=== PATIENT | male | born 1975 | race Caucasian/White ===

== ENCOUNTER → 2018-07-10 16:10 | Outpatient (CLI) | payer OTHER, SELFPAY ==
--- NOTE | 2018-07-10 16:13 | US_ITS ---
STUDY: SCROTUM ULTRASOUND REASON FOR EXAM: Male, 42 years old. Right testicular pain for 2 weeks TECHNIQUE: Ultrasound evaluation of the scrotum was performed with color Doppler and static marie-scale imaging. COMPARISON: None. FINDINGS: RIGHT TESTICLE INTRATESTICULAR: There is a normal size of the right testicle. The right testicle measures 4.3 x 2.6 x 1.9 cm. There is a homogenous echotexture. There is normal arterial and normal venous vascularity. There is no demonstrated right testicular mass or cyst. EXTRATESTICULAR: The epididymis is enlarged. The epididymis head measures 1.2 cm and is mildly heterogeneous. There is normal vascularity of the epididymis. There is no demonstrated epididymal cystic structure. There is a small hydrocele. There is no demonstrated varicocele. There is no demonstrated extratesticular mass or cyst. LEFT TESTICLE INTRATESTICULAR: There is a normal size of the left testicle. The left testicle measures 4.4 x 2.8 x 2.0 cm. There is a homogenous echotexture. There is normal arterial and normal venous vascularity. There is no demonstrated left testicular mass or cyst. EXTRATESTICULAR: The epididymis is normal in size. The epididymis head measures 1.2 cm. There is normal vascularity of the epididymis. There is no demonstrated epididymal cystic structure. There is a small hydrocele. There is no demonstrated varicocele. There is no demonstrated extratesticular mass or cyst. US/Testicular with Arterial Flow IMPRESSION: 1. Normal bilateral testicles. 2. Mild heterogeneity of the right epididymis could represent epididymitis. Electronically Signed: Guillaume Leong MD at 22:58 EST , Service support ,
== END ==
PROVIDERS: Family Provider Family Medicine; PCP Family Medicine; Referring Provider Family Medicine; Visit Provider Family Medicine
DX: N50.811 Right testicular pain (principal)
CPT/HCPCS: 76870; 93976

== ENCOUNTER → 2018-07-14 17:37 | Outpatient (CLI) | payer OTHER, SELFPAY ==
--- NOTE | 2018-07-14 18:25 | RAD_ITS ---
STUDY: X-RAY - LEFT KNEE REASON FOR EXAM: Male, 42 years old. Injury TECHNIQUE: 4 view(s) of the knee. COMPARISON: None. FINDINGS: Normal visualized distal femur. Normal visualized proximal tibia and fibula. Normal proximal tibiofibular articulation. Normal medial femorotibial compartment. Normal lateral femorotibial compartment. Normal patellofemoral articulation. Patella spurring. The soft tissue structures are unremarkable. RAD/Knee 4 or More Views IMPRESSION: No acute bony injury of the knee. Electronically Signed: Thom Borja DO at 23:59 EST Tel [phone], Service support ,
[2018-07-14 18:45] LABS: AST(SGOT) 21 U/L (15-37); Alanine Aminotransfer ALT/SGPT 44 U/L (16-61); Alkaline Phosphatase 84 U/L (45-117); Bilirubin, Direct 0.16 mg/dL (0.00-0.30); Globulin 3.4 g/dL (2.2-4.2); Protein, Total 7.4 g/dL (6.4-8.2)
== END ==
PROVIDERS: Family Provider Family Medicine; PCP Family Medicine; Referring Provider Family Medicine; Visit Provider Family Medicine
DX: R94.5 Abnormal results of liver function studies (principal); S89.92XA Unspecified injury of left lower leg, initial encounter
CPT/HCPCS: 36415; 73564; 80076

== ENCOUNTER → 2018-07-28 16:33 | Outpatient (CLI) | payer OTHER, SELFPAY ==
--- NOTE | 2018-07-28 16:35 | MRI_ITS ---
STUDY: MRI LEFT KNEE REASON FOR EXAM: Male, 42 years old. Pain after injury TECHNIQUE: Standardized fat and water weighted pulse sequences were obtained in all 3 orthogonal planes. COMPARISON: X-ray July 14, 2018 FINDINGS: Normal medial meniscus. Normal hyaline cartilage of the medial femorotibial compartment. Normal medial femoral condyle and tibial plateau. There is a partial sprain of the MCL with interstitial and periligamentous edema series 9 image 15/30. Normal distal semimembranosus, gracilis and semitendinosus tendons. Normal lateral meniscus. There is focal, greater than 50% thickness articular cartilage loss of the lateral tibial plateau, series 9 image 13/30. Normal lateral femoral condyle and tibial plateau. Normal proximal tibiofibular articulation. Normal lateral collateral (fibular) ligament. Normal popliteus tendon. Normal biceps femoris tendon. Normal anterior cruciate ligament (ACL). Normal posterior cruciate ligament (PCL). Normal congruent patellofemoral articulation. Normal hyaline cartilage of the patellofemoral compartment. Normal medial and lateral patellar retinaculum. Normal quadriceps tendon. Normal patellar tendon. Normal Hoffa's fat pad. There is a small volume joint effusion. There is a 5.1 cm Boone's cyst. The soft tissues are unremarkable. The otherwise visualized osseous structures are unremarkable. MRI/Lower Ext Joint Only (Routine) IMPRESSION: No meniscal tear. Focal cartilaginous irregularity of the lateral tibial plateau. Medial collateral ligament sprain. Joint effusion with popliteal cyst Electronically Signed: Narciso Wong MD at 21:56 EST , Service support ,
== END ==
PROVIDERS: Family Provider Family Medicine; PCP Family Medicine; Referring Provider Family Medicine; Visit Provider Family Medicine
DX: S89.92XA Unspecified injury of left lower leg, initial encounter (principal)
CPT/HCPCS: 73721

== ENCOUNTER → 2020-10-17 15:10 | Outpatient (CLI) | payer OTHER, SELFPAY | PROVIDERS: PCP Family Medicine; Referring Provider Family Medicine; Visit Provider Family Medicine | DX: Z20.828 Contact with and (suspected) exposure to other viral communicable diseases (principal) | CPT/HCPCS: 87635; U0002 ==

== ENCOUNTER → 2020-11-03 10:48 | Outpatient (CLI) | payer OTHER, SELFPAY ==
[2020-11-03 10:07] VITALS: BMI 29.9
--- NOTE | 2020-11-03 10:50 | STE_ITS ---
Reason For Study: CHEST PAIN Stress Results Protocol: Kailash Protocol Maximum Predicted HR: 176 bpm Target HR: 150 bpm % Maximum Predicted HR: 97 % DurationHeart Rate Stage (mm:ss) (bpm) BP Comment BASELINE 64 132/76 STAGE 1 3:00 105 130/82 STAGE 2 3:00 125 140/70NO CHEST PAIN STAGE 3 3:00 150 152/62 STAGE 4 3:00 171 156/80SOB NOTED, NO CHEST PAIN RECOVERY 107 122/82 Stress Duration: 12:00 mm:ss Maximum Stress HR: 171 bpm Baseline Echocardiogram Findings Stress Echo Wall motion Data Resting WM Intermediate WM Stress WM ECHO/Stress Test Echo w/o Contrast Interpretation Summary Exercise stress echo. 45-year-old man with a history of chest pain. Stress protocol: Resting EKG demonstrates normal sinus rhythm with a rate of 66 bpm normal inter vals are noted resting blood pressure is 132/76 mmHg. The patient exercised according to the r egular Kailash protocol for total duration of 12 minutes. Patient completed stage IV of the Kailash vesta col. The maximum heart rate attained was 171 bpm which was 97% of maximum predicted heart rate t he maximum workload was 13.7 metabolic equivalents. At rest there were no ST or T wave changes note d to suggest ischemia and at peak exercise upsloping ST changes were noted with did not meet the crit eria for ischemia. The peak blood pressure was 156/80 mmHg which was a good blood pressure respons e to exercise. Stress echocardiogram. Resting and stress echocardiographic images were obtained with the resting nathen mated ejection fraction at 55% and the peak ejection fraction is 65% with thickening of all wa lls and reduction of low ventricular cavity size. No wall motion abnormalities were noted to suggest ischemia. No clinical angina was noted. Conclusion: Normal exercise stress test with no EKG criteria for ischemia at a high workloa d. Excellent functional capacity. Preserved ejection fraction at rest and with exercise. Ordering Physician: Blaze^Blade^^^ Referring Physician: Blade Thakur Performed By: Shannon Langley, [facility], [place]
== END ==
PROVIDERS: PCP Family Medicine; Referring Provider Internal Medicine Cardiovascular Disease; Visit Provider Internal Medicine Cardiovascular Disease
DX: R07.9 Chest pain, unspecified (principal)
CPT/HCPCS: 93017; 93350

== ENCOUNTER 2021-08-23 16:51 | Outpatient (CLI) | payer OTHER, SELFPAY ==
[2021-08-23 17:59] LABS: Absolute Lymphocyte Count 2.98 X10^3/uL (0.83-4.51); Basophil# 0.06 X10^3/uL; Basophil% 0.7 % (0-1); Eosinophil# 0.19 X10^3/uL; Eosinophils% 2.3 % (0-5); Hematocrit 45.2 % (40-54); Hemoglobin 15.1 g/dL (13.0-16.5); Lymphocyte # 2.98 X10^3/ul (0.83-4.51); Lymphocyte % 36.4 % (19-41); Mean Corp Hgb Conc 33.4 g/dL (32-36); Mean Corpuscular Hgb 31.7 pg (27.0-32.0); Mean Corpuscular Volume 94.8 fL (80-94); Mean Platelet Vol. 10.8 fl (6.2-12.0); Monocyte# 0.92 X10^3/uL; Monocyte% 11.2 % (0-10); NRBC Flagged by Analyzer 0 % (0-5); Neutrophil # 4.02 X10^3/uL (2.7-7.7); Neutrophil % 49.2 % (47-70); Platelet Count 240 K/mm3 (150-450); RBC Distribution Width SD 41.9 fl (35.1-43.9); Red Blood Count 4.77 M/mm3 (4.6-6.2); White Blood Count 8.2 K/mm3 (4.4-11.0)
[2021-08-23 18:36] LABS: Vitamin B12 485 pg/mL (211-911); Vitamin D,25 Hydroxy 20.4 ng/mL
[2021-08-23 18:52] LABS: AST(SGOT) 23 U/L (15-37); Alanine Aminotransfer ALT/SGPT 42 U/L (16-61); Albumin, Serum 3.7 g/dL (3.2-5.0); Alkaline Phosphatase 83 U/L (45-117); Anion Gap 5 (5-15); BUN 15 mg/dL (7-18); BUN/Creat Ratio 13.5 RATIO (10-20); Calcium,Total 8.7 mg/dL (8.5-10.1); Chloride 107 mmol/L (98-107); Creatinine, Serum 1.11 mg/dL (0.70-1.30); EST Glomerular Filtration Rate 76 mL/min (>60); Est Glom Filt Rate - Afr Amer 92 mL/min (>60); Globulin 3.6 g/dL (2.2-4.2); Glucose 79 mg/dL (74-106); Protein, Total 7.3 g/dL (6.4-8.2); Sodium Level 139 mmol/L (136-145); T4 Free Direct 0.87 ng/dL (0.76-1.46); Thyroid Stim Hormone (TSH) 2.44 uIU/mL (0.358-3.74)
[2021-08-29 10:09] LABS: Beef <0.10 kU/L (Class 0); Corn <0.10 kU/L (Class 0); Egg, Whole <0.10 kU/L (Class 0); Milk (Cow) <0.10 kU/L (Class 0); Peanut <0.10 kU/L (Class 0); Pork <0.10 kU/L (Class 0); Soybean <0.10 kU/L (Class 0); Wheat <0.10 kU/L (Class 0)
[2021-08-29 13:33] LABS: Chocolate <0.10 kU/L (Class 0)
== END 2021-08-23 23:59 | disposition home or self-care (01) ==
LOC: MFPLAB 16:55
PROVIDERS: PCP Family Medicine; Referring Provider Family Medicine; Visit Provider Family Medicine
DX: R53.83 Other fatigue (principal); Z91.018 Allergy to other foods
CPT/HCPCS: 36415; 80053; 82306; 82607; 84439; 84443; 85025; 86003; 86005

== ENCOUNTER 2022-05-17 05:15 | Emergency (ER) | payer OTHER, SELFPAY ==
[2022-05-17 05:16] VITALS: BP 105/67; PULSE 73; RESP 23; TEMP 35.9; O2SAT 95; BMI 33.5
--- NOTE | 2022-05-17 05:25 | EDS_ITS ---
HPI History of Present Illness Chief Complaint: Syncope Narrative Narrative: 46-year-old male here for syncope, recent viral illness. Patient notes sick contacts at home notes that he was on the toilet had transient loss of consciousness. His states she went to the bathroom patient was leaned against the wall with his eyes open and appeared to be unconscious. States this lasted for seconds with no shaking, tongue biting or bowel or bladder incontinence. Patient denies any prior chest pain, shortness of breath, headache. Does note he has had chills muscle aches and headache for the last several days. Patient denies sudden onset or thunderclap headache, denies medical intensive within 1 minute, vomiting, neck pain or stiffness, changes in vision, fever, history malignancy, syncope at initiation, seizures. Denies family history of early cardiac . [facility] Medical History Back pain Migraines Obesity Seasonal allergies Home Medications ondansetron 4 mg disintegrating tablet 4 mg PO Q8H PRN nausea and vomiting #10 tabs 05/17/22 [Rx Last Taken Unknown] Allergy/AdvReac Type Severity Reaction Status Date / Time No Known Allergies Allergy Unverified 11/03/20 09:28 Family History Father Heart disease BAV had AVR Grandfather Myocardial infarction paternal Social History Smoking Status: Former smoker Tobacco: How many years used: 4 alcohol intake: never ROS ROS ED ROS Narrative Constitutional: Endorses chills, fatigue HEENT: Denies sore throat Neck: Denies neck pain Cardiovascular: Endorses syncope, denies chest pain or shortness of breath Respiratory: Denies shortness of breath GI: Denies nausea vomiting or abdominal pain : Denies changes in urinary habits Musculoskeletal: Denies muscle or joint pain Neurologic: Denies numbness weakness or loss of sensation, endorses headache Skin denies rash EXAM Physical Exam Narrative Exam Narrative: Nursing triage notes reviewed, Vital signs reviewed Constitutional: please see mdm HENT: MMM Eyes: Pupils equal round and reactive to light, Extraocular muscles intact Neck: No stridor, no JVD, full neck ROM Lungs: Clear to auscultation, No wheezing or rales. No increased work of breathing, no conversational dyspnea, no accessory muscle use, no nasal flaring. No respiratory distress noted Heart: Regular rate and rhythm, No murmurs, No rubs and No gallops, 2+ distal pulses (radial, femoral, posterior tibial) in all extremities Abdomen: Soft, there is no tenderness, rigidity, rebound or guarding, no obvious peritoneal signs, no palpable pulsatile abdominal masses, no auscultated abdominal bruit : No CVAT Extremities: No edema Neuro: Alert and oriented x3, neuro exam at baseline, cranial nerves II through XII are intact. No pain with extraocular muscle movement. There is negative test of skew. Normal speech. 5 of 5 strength in upper and lower extremities in flexion extension. Intact sensation to light touch in upper and lower extremity dermatomes. No truncal or extremity ataxia. No dysdiadochokinesia. Normal gait. 2+ reflexes. No meningeal signs. Negative Babinski. NIH of 0 Skin: No rash or lesions noted Const Vital Signs: 05/17/22 05:16 05/17/22 05:21 05/17/22 07:10 Temperature 96.7 F L Temperature Source Temporal Pulse Rate 73 70 Respiratory Rate 23 H 15 Respiratory Effort Normal Respiratory Pattern Normal Blood Pressure 105/67 101/68 Blood Pressure Mean 79 Pulse Ox 95 98 Oxygen Delivery Method Room Air MDM MDM MDM Narrative Medical decision making narrative: 46-year-old male here with viral URI symptoms, fatigue, syncope. Patient was hemodynamically stable, afebrile, nontoxic-appearing. He appeared ill but had no meningeal signs and no focal neurologic deficits. Low suspicion for secondary life-threatening headache at this time. Obtained a broad lab and imaging work-up to further elucidate etiology of his complaints and to rule out life-threatening etiologies or causes the patient symptoms including ACS, anemia, arrhythmia, pneumonia, COVID-19, flu. Labs and images were remarkable for no evidence of systemic inflammation, severe anemia, severe electrolyte abnormalities, GRANT, myocardial ischemia. EKG without arrhythmia, WPW, Brugada syndrome. Chest x-ray read by me showed no evidence of pneumonia. Patient's influenza test was positive. This is likely etiology of his presentation and likely precipitant of his syncopal episode. His vitals are stable is not hypoxic does not require inpatient admission at this time. Lab Data Attestation: I reviewed the patient's lab results. Lab results narrative: CBC without leukocytosis, severe anemia, no thrombocytopenia. BMP with mild hyponatremia, no other significant electrolyte abnormalities, no anion gap, no acute kidney injury Troponin is negative, no evidence of myocardial ischemia Labs: Laboratory Results - last 24 hr 05/17/22 05/17/22 05:43 05:43 WBC 6.1 RBC 4.57 L Hgb 14.1 Hct 42.0 MCV 91.9 MCH 30.9 MCHC 33.6 RDW Std Deviation 42.6 RDW Coeff of Hiral 12.7 Plt Count 183 MPV 10.0 Sodium 133 L Potassium 4.0 Chloride 103 Carbon Dioxide 24.0 Anion Gap 6 BUN 13 Creatinine 1.24 Estim Creat Clear Calc 87.47 Est GFR (MDRD) Af Amer 81 Est GFR (MDRD) Non-Af 67 BUN/Creatinine Ratio 10.5 Glucose 137 H Calcium 8.5 Troponin I High Sens 4 Radiography Chest X-Ray - ED: Read by ED Physician EKG Initial EKG: Attestation: I personally reviewed and interpreted this EKG as follows: Comments: EKG with normal sinus rhythm, normal axis, normal intervals, no STEMI, no ARVD, no WPW, no Brugada syndrome Treatment and Re-Evaluation Narrative: On re-evaluation the patient remained hemodynamically stable is appropriate for discharge home. Prior to discharge the patient's asked how the patient's Flu swab was obtained. I explained it was tested through a nasopharyngeal swab as per protocol. This did not seem to satisfy her request. I did try to de- escalate situation but the patient's became very rude and inpatient. She raised her voice and was visibly upset. She stated you have a horrible bed side manner. She felt as if her question was extremely important and wanted to know why I cannot answer it fully. I explained to the patient the route of testing is not as important as a diagnosis and certainly is not as important as her not having an acute life or limb threatening etiology. Care recovery initiated. Patient was discharged in stable condition. Discharge Plan Triage Chief Complaint: Syncope ED Provider: Carmelo Muniz Dx/Rx/DC Orders Clinical Impression: Syncope Instructions: Causes of Syncope, ED Influenza (Adult) Prescriptions: New ondansetron 4 mg tablet,disintegrating 4 mg PO Q8H PRN (Reason: nausea and vomiting) Qty: 10 0RF Stand Alone Forms: ED Work / School Excuse Primary Care Provider: Teto Nieves Referrals: Teto Nieves MD [Primary Care Provider] - Activity Restrictions/Additional Instructions: Please return if develop shortness of breath, if you pass out. Please follow w ith your primary care physician as soon as next available appointment. Disposition Disposition: Home, Self Care Discharge Date/Time: 05/17/22 07:20
--- NOTE | 2022-05-17 05:28 | EKG12_ITS ---
Test Reason : DYSRHYTHMIA Blood Pressure : / mmHG Vent. Rate : 072 BPM Atrial Rate : 072 BPM P-R Int : 152 ms QRS Dur : 086 ms QT Int : 388 ms P-R-T Axes : 044 076 000 degrees QTc Int : 424 ms Normal sinus rhythm Normal ECG Confirmed by MARANDA WEAVER, KELSEA ([id number]), assistant film editor FELIPA FERNANDEZ ([id number]) on 05/21/2022 11:46:39 AM Referred By: TIARRA Confirmed By:KELSEA LOW MD
[2022-05-17 05:48] LABS: Hemoglobin 14.1 g/dL (13.0-16.5); Mean Corp Hgb Conc 33.6 g/dL (32-36); Mean Corpuscular Hgb 30.9 pg (27.0-32.0); Mean Corpuscular Volume 91.9 fL (80-94); Platelet Count 183 K/mm3 (150-450); RBC Distribution Width CV 12.7 % (11.6-14.6); RBC Distribution Width SD 42.6 fl (35.1-43.9); Red Blood Count 4.57 M/mm3 (4.6-6.2); White Blood Count 6.1 K/mm3 (4.4-11.0)
[2022-05-17] MEDS: Acetaminophen 500 MG Tablet PO (06:03)
[2022-05-17 06:07] LABS: Anion Gap 6 (5-15); BUN 13 mg/dL (7-18); BUN/Creat Ratio 10.5 RATIO (10-20); Calcium,Total 8.5 mg/dL (8.5-10.1); Chloride 103 mmol/L (98-107); Creatinine, Serum 1.24 mg/dL (0.70-1.30); EST Glomerular Filtration Rate 67 mL/min (>60); Est Glom Filt Rate - Afr Amer 81 mL/min (>60); Estimated Creatinine Clearance 87.47 ml/min; Glucose 137 mg/dL (74-106); Sodium Level 133 mmol/L (136-145); Troponin-I HS 4 pg/mL (3.0-78.0)
--- NOTE | 2022-05-17 06:55 | RAD_ITS ---
STUDY: X-RAY CHEST REASON FOR EXAM: Male, 46 years old. syncope TECHNIQUE: AP portable. 6:37 AM COMPARISON: None. FINDINGS: LUNGS: No consolidation. No pneumothorax. MEDIASTINUM: Unremarkable. CARDIAC SILHOUETTE: Not enlarged. BONES AND SOFT TISSUES: No acute abnormalities. RAD/Chest 1 View (Portable) IMPRESSION: No evidence of active intrathoracic disease. Electronically Signed: Jyoti Mayorga MD at 9:07 EST ,
[2022-05-17 07:10] VITALS: BP 101/68; PULSE 70; RESP 15; O2SAT 98
== END 2022-05-17 07:20 | disposition home or self-care (01) ==
PROVIDERS: Emergency Provider Emergency Medicine; PCP Family Medicine; Visit Provider Emergency Medicine
DX: R55 Syncope and collapse (principal); Z87.891 Personal history of nicotine dependence; R53.83 Other fatigue; M79.10 Myalgia, unspecified site
CPT/HCPCS: 71045; 80048; 84484; 85027; 87428; 87807; 93005; 99285; A4216

== ENCOUNTER 2024-09-26 22:49 | Emergency (ER) | payer OTHER, SELFPAY ==
[2024-09-26 22:49] VITALS: BP 150/97; PULSE 65; RESP 18; TEMP 36.6; O2SAT 97; BMI 34.0
--- NOTE | 2024-09-26 23:05 | EKG12_ITS ---
Test Reason : PALPS Blood Pressure : */* mmHG Vent. Rate : 69 BPM Atrial Rate : 69 BPM P-R Int : 148 ms QRS Dur : 86 ms QT Int : 394 ms P-R-T Axes : 57 70 13 degrees QTcB Int : 422 ms Sinus rhythm with sinus arrhythmia with occasional Premature ventricular complexes Borderline Confirmed by Jermaine Padilla ([id number]), photo editor FELIPA FERNANDEZ ([id number]) on 09/27/2024 1:14:30 PM Referred By: Confirmed By: Jermaine Padilla
--- NOTE | 2024-09-26 23:08 | EDS_ITS ---
HPI History of Present Illness Chief Complaint: Palpitations Informant: patient and spouse/S.O. Narrative Narrative: Presents for spells intermittent palpitations feeling early beat once in a while. Started yesterday evening also more this evening. Mild discomfort. No recent cough. No recent travel surgery or immobilizations. No history of PE or DVT. Symptoms a few years ago was under a lot of stress. He follow-up with cardiology echocardiogram stress test performed negative per history. Father with bicuspid valve he states his bowels are normal. No tobacco history. No hypertension or hyperlipidemia. Denies diabetes. Denies recent vomiting or d iarrhea. Prior Similar Symptoms: [facility] History (Updated 09/27/24 @ 01:[address] Devaughn Pool, DO) Normal cardiac stress test Obesity Back pain Migraines Seasonal allergies Home Medications ?Medication ?Instructions ?Recorded ?Last Taken ?Type ondansetron 4 mg disintegrating 4 mg PO Q8H PRN nausea and 05/17/22 Unknown Rx tablet vomiting #10 tabs Allergy/AdvReac Type Severity Reaction Status Date / Time No Known Allergies Allergy Verified 09/26/24 22:50 Family History Father Heart disease BAV had AVR Grandfather Myocardial infarction paternal Social History Smoking Status: Former smoker Tobacco: How many years used: 4 alcohol intake: never ROS ROS ED Constitutional Constitutional ED: Denies chills, fever(s) or sweats ENT ENT ED: Denies sore throat Cardiovascular Cardiovascular: Reports chest pain and palpitations; Denies leg edema or racing heartbeat Respiratory/Chest Respiratory/Chest: Denies cough, dyspnea or dyspnea on exertion Gastrointestinal Gastrointestinal: Denies abdominal pain, diarrhea, nausea or vomiting Genitourinary Genitourinary ED: Denies dysuria, hematuria or urinary frequency Musculoskeletal Musculoskeletal: Denies back pain, extremity pain or neck pain Integumentary Denies rash or wounds Neurologic Neurologic: Denies headache(s), paresthesias or weakness EXAM Physical Exam Const Vital Signs: 09/26/24 22:49 09/26/24 23:13 09/26/24 23:20 Temperature 98 F Temperature Source Temporal Pulse Rate 65 68 Respiratory Rate 18 15 Blood Pressure 150/97 H Blood Pressure Mean 114 Pulse Ox 97 97 Oxygen Delivery Method Room Air Room Air 09/26/24 23:30 09/26/24 23:45 09/27/24 00:00 Temperature Temperature Source Pulse Rate 62 67 65 Respiratory Rate 11 L 19 H 14 Blood Pressure 131/94 H Blood Pressure Mean 104 Pulse Ox 98 97 96 Oxygen Delivery Method 09/27/24 00:15 09/27/24 00:30 09/27/24 00:45 Temperature Temperature Source Pulse Rate 59 L 61 63 Respiratory Rate 13 13 19 H Blood Pressure 134/94 H 134/93 H 130/92 H Blood Pressure Mean 107 103 105 Pulse Ox 97 97 96 Oxygen Delivery Method 09/27/24 01:00 09/27/24 02:02 Temperature 97.6 F L Temperature Source Pulse Rate 63 75 Respiratory Rate 18 14 Blood Pressure 115/78 128/68 H Blood Pressure Mean 90 88 Pulse Ox 96 98 Oxygen Delivery Method Positive well nourished and well developed General Appearance ED: well developed and NAD HEENT Reports moist mucous membranes normocephalic and atraumatic Eyes General Eye ED: Yes normal appearance of both eyes Neck full ROM Chest Wall Chest: Negative for tenderness Resp normal respiratory effort and normal air movement Effort and Inspection: symmetric chest movement; Negative for respiratory distress Cardio regular rate, regular rhythm and no murmurs Peripheral Pulses: pulses 2+ throughout GI normal to inspection, nondistended, normoactive bowel sounds and non-tender Palpation: Negative for guarding or rebound tenderness present Extremity normal to inspection General Extremety ED: Negative for edema or tenderness General Extremity: Negative for edema Neuro oriented x3 and no sensory deficits noted Sensorium / Orientation: awake and alert Skin no rashes or lesions noted and no wounds Heart Score History: Slightly/Non-Suspicious ECG: Normal Age: >45 - <65 years Risk Factors: 1 or 2 Risk Factors Troponin: </= Normal Limit Score: 2 MDM MDM MDM Narrative Medical decision making narrative: Interventions / MDM: Differential diagnosis: Palpitations, PVCs Diagnosis considered but do not suspect: ACS however cardiac enzymes negative, EKG with no ischemic findings. My EKG interpretation: Sinus rhythm 68, no ST changes isolated T wave in lead III nonspecific. PVC noted. Imaging independently reviewed and interpreted by myself: 1 view chest x-ray: No acute process also read by radiology. External documents reviewed: 2020 on cardiology visit with outpatient stress echo that was negative. Test considered but not ordered:N/A ED course: Vital stable nontoxic. Patient reported history noting intermittent symptoms that correlates with his PVCs on the monitor. EKG has a PVC. No acute findings. Mild chest discomfort will perform cardiac workup for further rule out. Cardiac enzymes negative x 2 intermittent PVCs with symptomatic symptoms. Heart rate remained in the 60s. Reassured on findings. No Holter monitor available in the ED. Referred back to cardiology for further workup. He will avoid any caffeine products. All questions were answered. Strict return precautions discussed. Re-evaluation: stable Disposition discussed with patient/family/significant other: Patient and significant other Case discussed with consulting clinician: N/A This note was generated with [employer] dictation software. It may contain incorrect words, spelling, and punctuation that were not noted in checking the note before signing. Lab Data Attestation: I reviewed the patient's lab results. Labs: Laboratory Results - last 24 hr 09/26/24 09/27/24 23:16 01:21 WBC 9.2 RBC 4.50 L Hgb 14.3 Hct 42.4 MCV 94.2 H MCH 31.8 MCHC 33.7 RDW Std Deviation 43.3 RDW Coeff of Hiral 12.4 Plt Count 228 MPV 10.4 Immature Gran % (Auto) 0.200 Neut % (Auto) 39.8 L Lymph % (Auto) 46.3 H [place] % (Auto) 10.9 H Eos % (Auto) 1.8 Baso % (Auto) 1.0 Absolute Neuts (auto) 3.7 Absolute Lymphs (auto) 4.26 Nucleated RBC % 0 Sodium 139 Potassium 4.9 Chloride 106 Carbon Dioxide 23.8 Anion Gap 8 BUN 18 Creatinine 1.32 H Estim Creat Clear Calc 95.33 Est GFR (MDRD) Non-Af 67 BUN/Creatinine Ratio 13.8 Glucose 99 Calcium 9.2 Troponin T High Sens 7 Troponin T Hi Sens 2 Hr < 6 Radiography Diagnostic Testing: Clinical Impression(s) from Imaging Studies Chest X-Ray 09/26/24 23:15 IMPRESSION: No Acute Findings. Reading [facility] Discharge Plan Triage Chief Complaint: Palpitations ED Provider: Devaughn Pool Dx/Rx/DC Orders Clinical Impression: Chest pain, Symptomatic PVCs Instructions: PVCs, ED Chest Pain, Noncardiac Prescriptions: No Action ondansetron 4 mg tablet,disintegrating 4 mg PO Q8H PRN (Reason: nausea and vomiting) Qty: 10 0RF Primary Care Provider: Teto Nieves Referrals: Blade Thakur MD [Med Staff - Active Staff] - 3-5 Days Teto Nieves MD [Primary Care Provider] - Activity Restrictions/Additional Instructions: Cardiac labs electrolytes normal ED. Noting intermittent PVCs that he feels symptoms from. Avoid caffeine products this time. Follow with Dr. Thakur for whom you seen in the past. Print Language: Filipino Disposition Disposition: Home, Self Care Discharge Date/Time: 09/27/24 02:02
--- NOTE | 2024-09-26 23:15 | RAD_ITS ---
PROCEDURE: CHEST 1 VIEW (PORTABLE) 09/26/2024 REASON FOR EXAM: CHEST PAIN TECHNIQUE: Frontal view of the chest. COMPARISON: None FINDINGS: Hardware: None Heart: The heart size is normal. Lungs: No focal consolidation. No pneumothorax. No pleural effusion. Bones: The bones are unremarkable. Other: RAD/Chest 1 View (Portable) IMPRESSION: No Acute Findings. Reading Location: [facility]
[2024-09-26 23:20] VITALS: PULSE 68; RESP 15; O2SAT 97
[2024-09-26 23:27] LABS: Absolute Lymphocyte Count 4.26 X10^3/uL (0.83-4.51); Absolute Neutrophil Count 3.7 X10^3/uL (2.0-7.7); Basophil# 0.09 X10^3/uL; Eosinophil# 0.17 X10^3/uL; Eosinophils% 1.8 % (0-5); Hematocrit 42.4 % (40-54); Hemoglobin 14.3 g/dL (13.0-16.5); Lymphocyte # 4.26 X10^3/ul (0.83-4.51); Lymphocyte % 46.3 % (19-41); Mean Corp Hgb Conc 33.7 g/dL (32-36); Mean Corpuscular Hgb 31.8 pg (27.0-32.0); Mean Corpuscular Volume 94.2 fL (80-94); Mean Platelet Vol. 10.4 fl (6.2-12.0); Monocyte% 10.9 % (0-10); NRBC Flagged by Analyzer 0 % (0-5); Neutrophil # 3.67 X10^3/uL (2.7-7.7); Neutrophil % 39.8 % (47-70); Platelet Count 228 K/mm3 (150-450); RBC Distribution Width CV 12.4 % (11.6-14.6); RBC Distribution Width SD 43.3 fl (35.1-43.9); White Blood Count 9.2 K/mm3 (4.4-11.0)
[2024-09-26 23:30] VITALS: PULSE 62; RESP 11; O2SAT 98
[2024-09-26 23:45] VITALS: PULSE 67; RESP 19; O2SAT 97
[2024-09-26 23:48] LABS: Anion Gap 8 (5-15); BUN 18 mg/dL (4-19); BUN/Creat Ratio 13.8 RATIO (10-20); Calcium,Total 9.2 mg/dL (7.6-11.0); Carbon Dioxide 23.8 mmol/L (21.0-32.0); Chloride 106 mmol/L (98-108); Creatinine, Serum 1.32 mg/dL (0.70-1.20); EST Glomerular Filtration Rate 67 (>60); Estimated Creatinine Clearance 95.33 ml/min (50-250); Glucose 99 mg/dL (70-99); Potassium 4.9 mmol/L (3.3-5.1); Sodium Level 139 mmol/L (133-145); Troponin T High Sensitivity 7 ng/L (<=22)
[2024-09-27] VITALS: BP 131/94; PULSE 65; RESP 14; O2SAT 96
[2024-09-27 00:15] VITALS: BP 134/94; PULSE 59; RESP 13; O2SAT 97
[2024-09-27 00:30] VITALS: BP 134/93; PULSE 61; RESP 13; O2SAT 97
[2024-09-27 00:45] VITALS: BP 130/92; PULSE 63; RESP 19; O2SAT 96
[2024-09-27 01:00] VITALS: BP 115/78; PULSE 63; RESP 18; O2SAT 96
[2024-09-27 01:41] LABS: Troponin T High Sens 2 HR < 6 ng/L (<=22)
[2024-09-27 02:02] VITALS: BP 128/68; PULSE 75; RESP 14; TEMP 36.4; O2SAT 98
== END 2024-09-27 02:02 | disposition home or self-care (01) ==
PROVIDERS: Emergency Provider Emergency Medicine; PCP Family Medicine; Visit Provider Emergency Medicine
DX: R07.89 Other chest pain (principal); I49.3 Ventricular premature depolarization; Z87.891 Personal history of nicotine dependence
CPT/HCPCS: 71045; 80048; 84484; 85025; 93005; 99284; A4216

== ENCOUNTER → 2024-11-18 | Outpatient (CLI) | payer OTHER, SELFPAY ==
[2024-11-18 18:26] LABS: PSA,Total - Annual Screen 2.62 ng/mL (0.02-4.00); Vitamin D,25 Hydroxy 22.1 ng/mL (30-100)
[2024-11-22 16:08] LABS: Thyroglobulin Antibody < 1.0 IU/mL (0.0-0.9); Thyroid Peroxidase AB < 9 IU/mL (0-34)
== END | disposition home or self-care (01) ==
LOC: MTLAB 16:39
PROVIDERS: PCP Family Medicine; Referring Provider Family Medicine; Visit Provider Family Medicine
DX: R79.89 Other specified abnormal findings of blood chemistry (principal); Z12.5 Encounter for screening for malignant neoplasm of prostate
CPT/HCPCS: 36415; 82306; 84153; 84439; 84443; 86376; 86800; G0103